=== PATIENT | female | born 1950 ===

== ENCOUNTER 2017-11-30 12:28 | Emergency (ER) | payer OTHER ==
[~2017-11-30] VITALS: Ht 167.6 cm; Wt 81.6 kg
[2017-11-30] MEDS ORDERED: JANUMET 50-1,01 EACH (12:46)
== END 2017-11-30 15:42 | disposition home or self-care (01) ==
LOC: ER 12:28
DX: N61.1 Abscess of the breast and nipple (principal)

== ENCOUNTER 2019-09-14 14:09 | Emergency (ER) | payer OTHER ==
[~2019-09-14] VITALS: Ht 152.4 cm; Wt 78.9 kg
[~2019-09-14 14:09] MED LIST: JANUMET 50-1,01 EACH
== END 2019-09-15 16:22 | disposition home or self-care (01) ==
LOC: ER 14:09
DX: K52.89 Other specified noninfective gastroenteritis and colitis (principal)

== ENCOUNTER 2022-07-31 08:35 | Outpatient (CLI) | payer OTHER | END 2022-07-31 08:41 | disposition home or self-care (01) | LOC: RAD 08:35 | PROVIDERS: ATTEND Internal Medicine | DX: K57.90 Diverticulosis of intestine, part unspecified, without perforation or abscess without bleeding (principal); K51.90 Ulcerative colitis, unspecified, without complications ==

== ENCOUNTER 2022-11-15 13:48 | Outpatient (CLI) | payer OTHER | END 2022-11-15 14:04 | disposition home or self-care (01) | LOC: RAD 13:48 | PROVIDERS: ATTEND Internal Medicine | DX: M65.322 Trigger finger, left index finger (principal); M79.645 Pain in left finger(s) ==

== ENCOUNTER → 2023-02-07 | Outpatient (CLI) | payer OTHER | END | disposition home or self-care (01) | LOC: RAD 08:27 | PROVIDERS: ATTEND Obstetrics & Gynecology | DX: R05.1 Acute cough (principal) ==